=== PATIENT | female | born 1965 | race Caucasian/White ===

== ENCOUNTER 2018-11-13 19:04 | Observation (INO) | payer BC ==
[~2018-11-13] VITALS: Ht 177.8 cm; Wt 109.1 kg
--- NOTE | ~2018-11-13 | HEMODYNAMI ---
PATIENT:BOB CORMIER MEDICAL RECORD: [id number] : 63 LOCATION:[facility] [place] KeylaE11- [facility]# [id number] ADMISSION DATE: 11/13/18 Generatedon:11/14/20189:19 Patient name: BOB CORMIER Patient #: [id number] SSN: : 1965 Date of study: 11/14/2018 Page: Of Hemodynamic Procedure Report Patient Data Patient Demographics Procedure consent was obtained First Name: BOB Gender: Female Last Name: GENIA : 1965 [facility] Initial: L Age: 53 year(s) Patient #: [id number] Race: Unknown Additional ID: [id number] Contact details [address]: [address] [place] [address] State: [place] City: [place] Zip code: [address] Past Medical History Allergies Allergen Reaction Date Comments Reported Aspirin 11/14/2018 Codeine 11/14/2018 Iodine 11/14/2018 Admission Admission Data Admission Date: 11/13/2018 Admission Time: 22:57 Room #: D.E11 Procedure Procedure Types Cath Procedure Diagnostic Procedure LHC LHC w/Coronaries Procedure Description Procedure Date Procedure Date: 11/14/2018 Procedure Start Time: 9:06 Procedure End Time: 9:17 Procedure Staff Name Function Aaron Metzger MD Performing Physician Taurus Lopez RN Nurse Cielo Andino RT Monitor Wei Alcala RT Scrub Procedure Data Cath Procedure Fluoroscopy Diagnostic fluoroscopy Total fluoroscopy Time: 1.5 time: 1.5 min min Diagnostic fluoroscopy Total fluoroscopy dose: 501 dose: 501 mGy mGy Contrast Material Contrast Material Type Amount (ml) Isovue 300 52 Entry Location Entry Primary Successful Side Size Upsize Upsize Entry Closure Cordero ccessful Closure Location (Fr) 1 (Fr) 2 (Fr) Remarks Device Remarks Radial Right 6 Fr Mechanical artery Short Compression Estimated blood loss: 5 ml Diagnostic catheters Device Type Used For End Catheter Placement DIAGNOSTIC [place] 110cm 5 LV Angiography Fr catheter ([id number]) DIAGNOSTIC [place] 110cm 5 Left Coronary Fr catheter ([id number]) Angiography DIAGNOSTIC [place] 110cm 5 Right Coronary Fr catheter ([id number]) Angiography Procedure Complications No complications Procedure Medications Medication Administration Route Dosage 0.9% NaCl I.V. 100 ml/hr Oxygen etCO2 Nasal cannula 2 l/min Heparin Flush Bag added to field 2 bags (1000units/500ml NS) Lidocaine 2% added to field 20 Solumedrol I.V. 125 mg Radial Cocktail added to field 1 syringe (Verapomil 2mg/Nitro 400mcg/Heparin 1500units) Versed I.V. 2 mg Fentanyl I.V. 100 mcg Versed I.V. 2 mg Radial Cocktail I.A. 1 syringe (Verapomil 2mg/Nitro 400mcg/Heparin 1500units) Hemodynamics Rest Heart Rate: 72 (bpm) Pressure Samples Time Site Value (mmHg) Purpose Heart Use Rate(bpm) 9:11 LV 111/6,9 Snapshot 76 Gradients Valve Time Site Site Mean SEP/DFP Peak To Heart Use 1 2 (mmHg) (sec/min) Peak Rate (mmHg) (bpm) Aortic 9:11 LV AO 78 Snapshots Pre Cath Intra NCS Post Cath Vital Signs Time Heart Resp SPO2 etCO2 NIBP (mmHg) Rhythm Pain Sedation Rate (ipm) (%) (mmHg) Status Level (bpm) 9:00:12 78 11 98 37 153/85(119) NSR 0 (11) 10(A) , No pain 9:04:32 69 18 96 41.6 152/83(115) NSR 0 (11) 10(A) , No pain 9:08:48 69 19 95 33.3 138/74(112) NSR 0 (11) 10(A) , No pain 9:13:04 88 19 95 42.3 132/70(96) NSR 0 (11) 10(A) , No pain 9:17:18 72 10 97 45.4 130/77(96) NSR 0 (11) 10(A) , No pain Medications Time Medication Route Dose Verified Delivered Reason Notes Effectiveness by by 8:57:49 0.9% NaCl I.V. 100 Taurus Taurus Per ml/hr John Lopez physician RN RN 8:58:00 Oxygen etCO2 2 l/min Taurus Taurus Per Nasal John Lopez physician cannula RN RN 8:58:12 Heparin Flush added 2 bags Taurus Taurus used for Bag to John Lopez procedure (1000units/500ml field RN RN NS) 8:58:24 Lidocaine 2% added 20ml Taurus Taurus for local to vial John Lopez anesthetic field RN RN 8:58:44 Solumedrol I.V. 125 mg Taurus Taurus Per John Lopez physician RN RN 8:59:01 Radial Cocktail added 1 Taurus Taurus used for (Verapomil to syringe Lorigan Lorigan procedure 2mg/Nitro field RN RN 400mcg/Hepari 9:05:47 Versed I.V. 2 mg Taurus Taurus for sedation John Lopez RN RN 9:05:55 Fentanyl I.V. 100 mcg Taurus Taurus for sedation John Lopez RN RN 9:08:16 Versed I.V. 2 mg Taurus Taurus for sedation John Lopez RN RN 9:09:51 Radial Cocktail I.A. 1 Taurus Aaron for (Verapomil syringe Lorigan Domenica vasodilation 2mg/Nitro KWAKU CRUZ 400mcg/Hepari Procedure Log Time Note 8:17:09 Diagnostic Cath status Elective 8:17:12 Jack Suit RT(R) sent for patient. Start room use. 8:17:14 Time tracking: Regular hours (M-F 7:00 - 5:00) 8:17:18 Plan of Care:Hemodynamics will remain stable., Cardiac rhythm will remain stable., Comfort level will be maintained., Respiratory function will remain adequate., Patient/ family verbilizes understanding of procedure., Procedure tolerated without complication., Recovers from procedure without complications.. 8:45:47 Patient received from ED to CCL 2 Alert and oriented. Tansferred to table in Supine position. 8:45:49 Correct patient and procedure confirmed by team. 8:45:49 Correct patient and procedure confirmed by team. 8:45:49 Warm blankets applied, and liz hugger turned on for patient comfort. 8:45:51 Signed procedure consent form obtained from patient. 8:45:52 ECG and BP/O2 sat monitors applied to patient. 8:45:53 Full Disclosure recording started 8:57:49 0.9% NaCl 100 ml/hr I.V. was administered by Taurus Lopez RN; Per physician; 8:58:00 Oxygen 2 l/min etCO2 Nasal cannula was administered by Taurus Lopez RN; Per physician; 8:58:12 Heparin Flush Bag (1000units/500ml NS) 2 bags added to field was administered by Taurus Lopez RN; used for procedure; 8:58:24 Lidocaine 2% 20ml vial added to field was administered by Taurus Lopez RN; for local anesthetic; 8:58:44 Solumedrol 125 mg I.V. was administered by Taurus Lopez RN; Per physician; 8:58:48 Vital chart was started 8:59:01 Radial Cocktail (Verapomil 2mg/Nitro 400mcg/Heparin 1500units) 1 syringe added to field was administered by Taurus Lopez RN; used for procedure; 9:01:15 Baseline sample Acquired. 9:01:22 Rhythm: sinus rhythm 9:01:34 H&P Date Dictated: 11/13/2018 Within 30 days and on chart., ER History on chart.. 9:01:36 Pre-procedure instructions explained to patient. 9:01:37 Pre-op teaching completed and patient verbalized understanding. 9:01:40 Family in waiting room. 9:01:42 Patient NPO since Midnight. 9:01:48 Patient allergic to Aspirin 9:01:51 Patient allergic to Codeine 9:01:54 Is the patient allergic to Iodine/contrast media? Yes. 9:02:04 Patient allergic to Iodine 9:02:07 Was the patient premedicated? Yes 9:02:09 Is patient on blood thinner?No 9:02:11 Patient diabetic? No. 9:02:14 Previous problem with sedation/anesthesia? No ? 9:02:15 Snore? Yes 9:02:17 Sleep apnea? No 9:02:18 Deviated septum? No 9:02:19 Opens mouth fully? Yes 9:02:20 Sticks out tongue? Yes 9:02:22 Airway obstruction? Yes COPD 9:02:25 Dentures? No ? 9:02:43 Pre procedure: right dorsailis pedis pulse 2+ Normal; easily identifiable; not easily obliterated 9:02:46 Modified Ayo's test Ulnar < 7 seconds 9:02:48 Patient pain scale 0/10 ?. 9:02:54 IV patent on arrival in left antecubital with 0.9% NaCl at KVO. 9:02:56 Lab results completed and on chart. 9:03:00 Right Radial & Right Groin area was prepped with chlora-prep and draped in sterile fashion 9:03:01 Alarms reviewed by R. N. 9:03:02 Sharps counted by scrub and verified by R.N. 9:03:04 Use device set Radial Dx or PCI 9:03:05 ACIST Syringe (59583) opened to sterile field. 9:03:06 Bag Decanter (2002S) opened to sterile field. 9:03:06 Medline Cath Pack ([id number]) opened to sterile field. 9:03:07 ACIST Hand Control (11619) opened to sterile field. 9:03:07 DIAGNOSTIC WIRE .035 260cm J wire (376004) opened to sterile field. 9:03:08 ACIST Manifold (15269) opened to sterile field. 9:03:09 MBrace Wrist Support ([id number]) opened to sterile field. 9:03:10 SHEATH 6FR Slender (38-9151) opened to sterile field. 9:04:28 Final Timeout: patient, procedure, and site verified with staff and physician. All members of the team are in agreement. 9:04:31 Right Radial site verified by team. 9:04:34 Physical assessment completed. ASA score P 2 - A patient with mild systemic disease as per Aaron Metzger MD. 9:04:37 Sedation plan: IV Moderate Sedation Medication:Versed, Fentanyl 9:05:47 Versed 2 mg I.V. was administered by Taurus Lopez RN; for sedation; 9:05:55 Fentanyl 100 mcg I.V. was administered by Taurus Lopez RN; for sedation; 9:06:49 Procedure started. 9:06:53 Local anesthetic to right radial artery with Lidocaine 2% by Aaron Metzger MD.INITIAL ACCESS ONLY 9:07:27 Zero performed for pressure channel P1 9:08:16 Versed 2 mg I.V. was administered by Taurus Lopez RN; for sedation; 9:09:01 Zero performed for pressure channel P1 9:09:18 A 6 Fr Short sheath was inserted into the Right Radial artery 9:09:26 A DIAGNOSTIC [place] 110cm 5 Fr catheter (490782) was advanced over the wire and used for LV Angiography. 9:09:51 Radial Cocktail (Verapomil 2mg/Nitro 400mcg/Heparin 1500units) 1 syringe I.A. was administered by Aaron Metzger MD; for vasodilation; 9:11:20 LV gram done using SHAY 9:11:22 Injector settings: Ml/sec: 5, Volume: 15, 9:11:24 LV hemodynamics recorded. 9:11:30 EF : 50 % 9:12:02 A DIAGNOSTIC [place] 110cm 5 Fr catheter ([id number]) was advanced over the wire and used for Left Coronary Angiography. 9:13:19 A DIAGNOSTIC [place] 110cm 5 Fr catheter (077285) was advanced over the wire and used for Right Coronary Angiography. 9:13:26 Catheter removed. 9:13:47 Sheath removed intact; hemostasis achieved with Mechanical Compression to the Right Radial artery. 9:13:48 Procedure ended.(Physican Out) 9:14:19 Fluoroscopy time 01.50 minutes. 9:14:22 Fluoroscopy dose: 501 mGy 9:14:22 Flurop Dose total: 501 9:14:25 Contrast amount:Isovue 300 52ml. 9:14:26 Sharps counted by scrub and verified by R.N. 9:14:29 TR band inflated with 12cc of air. 9:14:30 Insertion/operative site no bleeding no hematoma. 9:14:51 Post right radial artery:stable, clean and dry 9:14:53 Post Procedure Pulses reassessed and unchanged 9:15:02 Post-procedure physical assessment completed. ASA score P 2 - A patient with mild systemic disease as per Aaron Metzger MD. 9:15:16 Post procedure rhythm: unchanged. 9:15:19 Estimated blood loss: 5 ml 9:15:20 Patient needs reinforcement of post procedure teaching. 9:15:20 Post procedure instruction explained to patient.Patient verbalizes understanding. 9:16:20 Procedure Complication : No complications 9:16:22 See physician's report for complete and final results. 9:16:36 TR BAND Standard ([id number]) opened to sterile field. 9:17:14 Procedure and supply charges have been captured, reviewed, submitted and are correct. 9:17:30 Vital chart was stopped 9:17:32 Report given to Pre/Post Procedure Room. 9:17:37 Patient transfered to Pre/Post Procedure Room with Stretcher. 9:17:39 Full Disclosure recording stopped 9:17:39 Procedure ended. 9:17:43 End room use (Document Last) Device Usage Item Name Manufacture Quantity Catalog Hospital Part Current Minimal Lot# / Number Charge Number Stock Stock Serial# Code ACIST Acist 1 14623 [id number] [id number] 20 Syringe Medical (70755) Systems Inc Medline Medline 1 [id number] 578203 50701 045157 5 Cath Pack ([id number]) Bag Microtek 1 2001S 369573 84658 701805 5 Decanter Medical Inc. (2001S) DIAGNOSTIC [place] 1 510471 065355 311968 072850 30 WIRE .035 260cm J wire (983317) ACIST Hand Acist 1 67827 915851 069286 001845 5 Control Medical (80082) Systems Inc ACIST Acist 1 42295 341158 566479 368808 5 Manifold Medical (79783) Systems Inc MBrace Advanced 1 140-0250-00 458969 34431 330849 5 Wrist Vascular Support Dynamics ([id number]) SHEATH 6FR Terumo 1 [id number] 806273 506130 078999 5 Slender (801060) DIAGNOSTIC Terumo 1 40-0749 509648 914992 859604 5 [place] 110cm 5 Fr catheter (642732) TR BAND Terumo 1 [id number] 499159 642253 884782 40 Standard ([id number]) Signature Audit [place] Stage Time Signature Unsigned Intra-Procedure 11/14/2018 Cielo 9:19:05 AM Counts RT(R) Signatures Monitor : Cielo Signature : Counts RT Date : Time : [place] [id number] [place] [address]
[2018-11-13] MEDS ORDERED: HUMIRA (19:09)
[2018-11-13] MEDS ORDERED: METOPROLOL TART25 MG PO (19:09)
[2018-11-13] MEDS ORDERED: NALFON400 MG PO (19:10)
[2018-11-13] MEDS ORDERED: LEXAPRO10 MG PO (19:10)
[2018-11-13] MEDS ORDERED: ARAVA10 MG PO (19:11)
[2018-11-13] MEDS ORDERED: CALCIUM 500 +1 EAC3 PO (19:11)
[2018-11-13] MEDS ORDERED: OXYCODONE-APAP1 T10 PO (19:12)
[2018-11-13] MEDS ORDERED: ATIVAN1 MG PO (19:12)
[2018-11-13 20:06] LABS: BASOPHILS 0.3 % (0-2); EOSINOPHILS 3.5 % (0-7); HEMATOCRIT 42.7 % (36.0-48.0); HEMOGLOBIN 13.7 g/dL (12-16); IMMATURE GRANULOCYTES 0.3 % (0-5); MCH 32.5 pg (26.0-34.0); MCHC 32.1 g/dL (31.0-37.0); MCV 101.4 fL (80.0-100.0); MEAN PLATELET VOLUME 10.6 fL (7.4-10.4); MONOCYTES 7.3 % (2-11); NEUTROPHILS 53.6 % (40-80); PLATELET COUNT 216 10x3/uL (130-400); RBC 4.21 10x6/uL (4.00-5.40); RDW 13.5 % (11.5-14.5); WBC 7.4 10x3/uL (4.8-10.8)
[2018-11-13 20:16] LABS: APTT 27.5 SECONDS (22.8-39.4); INR 0.93 (0.85-1.17)
[2018-11-13 20:25] LABS: ALBUMIN 3.2 g/dL (3.4-5.0); ALKALINE PHOSPHATASE 57 U/L (46-116); ALT (SGPT) 24 U/L (10-68); BILIRUBIN - TOTAL 0.24 mg/dL (0.2-1.3); CALC OSMOLALITY 282 mosm/kg (275-300); CALCIUM 8.8 mg/dL (8.5-10.1); CHLORIDE - SERUM 106 mmol/L (98-107); CREATININE - SERUM 0.9 mg/dL (0.6-1.3); GLUCOSE 102 mg/dL (74-106); POTASSIUM - SERUM 3.9 mmol/L (3.5-5.1); PROTEIN - SERUM 6.9 g/dL (6.4-8.2); SODIUM 142 mmol/L (136-145); UREA NITROGEN 12 mg/dL (7-18); eGFR NON AFRICAN AMERICAN 69 mL/min (90-120)
[2018-11-13 20:40] LABS: CKMB 1.2 U/L (0.0-3.6); CREATINE KINASE 116 UL (21-215); TROPONIN-I < 0.017 ng/mL (0.000-0.060)
[2018-11-13 23:16] VITALS: BP 113/53
[2018-11-14 03:01] VITALS: BP 107/49
[2018-11-14 03:09] LABS: CKMB 0.9 U/L (0.0-3.6); CREATINE KINASE 90 UL (21-215); TROPONIN-I < 0.017 ng/mL (0.000-0.060)
[2018-11-14 06:32] VITALS: BP 138/117
[2018-11-14 07:21] VITALS: Ht 177.8 cm; Wt 109.1 kg
[2018-11-14 08:37] LABS: BASOPHILS 0.4 % (0-2); EOSINOPHILS 2.6 % (0-7); HEMATOCRIT 39.3 % (36.0-48.0); HEMOGLOBIN 12.8 g/dL (12-16); IMMATURE GRANULOCYTES 0.4 % (0-5); LYMPHOCYTES 27.6 % (15-50); MCH 32.8 pg (26.0-34.0); MCHC 32.6 g/dL (31.0-37.0); MCV 100.8 fL (80.0-100.0); MEAN PLATELET VOLUME 10.5 fL (7.4-10.4); MONOCYTES 8.1 % (2-11); NEUTROPHILS 60.9 % (40-80); PLATELET COUNT 214 10x3/uL (130-400); RDW 13.8 % (11.5-14.5); WBC 7.7 10x3/uL (4.8-10.8)
[2018-11-14 08:43] VITALS: BP 127/61
[2018-11-14 08:48] LABS: CALC OSMOLALITY 283 mosm/kg (275-300); CALCIUM 8.3 mg/dL (8.5-10.1); CARBON DIOXIDE 28.5 mmol/L (21.0-32.0); CHLORIDE - SERUM 106 mmol/L (98-107); CHOL - HDL RATIO 3.4 ratio (2.3-4.1); CHOLESTEROL, TOTAL 156 mg/dL (0-200); CKMB 0.6 U/L (0.0-3.6); CREATINE KINASE 87 UL (21-215); CREATININE - SERUM 0.9 mg/dL (0.6-1.3); GLUCOSE 107 mg/dL (74-106); HDL CHOLESTEROL 46 mg/dL (32-96); LDL CHOLESTEROL 83 mg/dL (0-100); LDL-HDL RATIO 1.8 ratio (1.5-3.5); POTASSIUM - SERUM 3.7 mmol/L (3.5-5.1); SODIUM 142 mmol/L (136-145); TRIGLYCERIDE 137 mg/dL (30-200); UREA NITROGEN 14 mg/dL (7-18); eGFR NON AFRICAN AMERICAN 69 mL/min (90-120)
[2018-11-14 08:49] LABS: TROPONIN-I < 0.017 ng/mL (0.000-0.060)
--- NOTE | 2018-11-14 09:38 | NUR ---
RECIEVED TO ROOM VIA STRETCHER FROM [employer] OPERATOR WITH TR BAND TO R/WRIST CDI NO BLEEDING OR HEMATOMA NOTED. PATIENT CONNECTED TO MONITOR FOR OBSERVATION WITH HR 89 BP 146/83 CHEST PAIN DENIED
--- NOTE | 2018-11-14 09:44 | NUR ---
TR BAND REMAINS CDI WITH VSS PATIENT TOLERATING SANDWICH AND SODA WITH NAUSEA DENIED. VSS AND CHEST PAIN DENIED
--- NOTE | 2018-11-14 10:13 | NUR ---
TR BAND REMAINS CDI WITH NO BLEEDING OR HEMATOMA NOTED. HR 80 BP 158/92 CHEST PAIN IS DENIED. CALL LIGHT IN REACH WITH FAMILY AT BEDSIDE
--- NOTE | 2018-11-14 10:33 | NUR ---
SITTING WITH HOB UP 30 DEGREES CHEST PAIN IS DENIED VSS AND TR BAND TO R/WRIST IS CDI
--- NOTE | 2018-11-14 10:45 | NUR ---
4 CC AIR REMOVED FROM TR BAND WITH NO BLEEDING OR HEMATOMA NOTED.
--- NOTE | 2018-11-14 10:53 | NUR ---
4 CC AIR REMOVED FROM TR BAND WITH NO BLEEDING OR HEMATOMA NOTED. DR MG PRESENT AT BEDSIDE. PATIENT DENIED PAIN OR NEEDS CALLL LIGHT IN REACH
--- NOTE | 2018-11-14 11:14 | NUR ---
4 CC AIR REMOVED FROM TR BAND WITH NO BLEEDING OR HEMATOMA. PIV REMOVED WITH DRESSING APPLIED. PATIENT UP TO GET DRESSED FOR DISCHARGE HOME
--- NOTE | 2018-11-14 11:37 | NUR ---
TR BAND REMOVED WITH DRESSING APPLIED. VERBAL AND WRITTEN DISCHARGE GONE OVER WITH PATIENT AND FAMILY. CHEST PAIN IS DENIED. PATIENT TRANSPORTED VIA TO PARKING FOR RIDE HOME NO DISTRESS
--- NOTE | 2018-11-19 15:26 | OP ---
PATIENT NAME: BOB CORMIER MEDICAL RECORD: [id number] :63 [facility]ATION[facility] ADMISSION DATE:11/13/18 SURGEON: EMILIANO MG MD DATE OF OPERATION: 11/14/2018 PROCEDURE: Left heart catheterization, selective coronary angiography, right radial approach. CATHETERS: [place] catheter. Radial sheath. The procedure was well tolerated. The patient was returned to villatoro. Sheath removed. TR band was placed. FINDINGS: Left ventriculography in 30-degree SHAY view: Normal wall motion and normal systolic function. CORONARY ANATOMY: LEFT MAIN: Left main is free of disease. LAD: Free of disease in diagonal system. CIRCUMFLEX: Free of disease in the marginal system. RIGHT CORONARY ARTERY: Dominant artery. IMPRESSION: Normal LV systolic function. Normal coronary anatomy. TRANSINT:[id number] Voice Confirmation ID: [id number] DOCUMENT ID: [id number] EMILIANO MG MD at 1526 CC: [id number] DICTATION DATE: 11/14/18940 TECHNOLOGY ENGINEER: 11/14/18 1236 DIS IN 11/14/18 [facility] [address] [place] [address]
== END 2018-11-14 11:40 | disposition home or self-care (01) ==
LOC: D.ER 19:04 → D.CLR 22:57 → D.EDHOLD 22:57 → OBSVTIME 22:57 → D.EDHOLD 22:57 → D.CLR 11-14 09:25
PROVIDERS: Family Medicine; Internal Medicine Cardiovascular Disease; ADMIT Internal Medicine Nephrology
DX: R07.9 Chest pain, unspecified (principal); M06.9 Rheumatoid arthritis, unspecified; R00.2 Palpitations; F17.213 Nicotine dependence, cigarettes, with withdrawal; I10 Essential (primary) hypertension; E78.5 Hyperlipidemia, unspecified; R55 Syncope and collapse; R61 Generalized hyperhidrosis; K21.9 Gastro-esophageal reflux disease without esophagitis; J44.9 Chronic obstructive pulmonary disease, unspecified

== ENCOUNTER → 2018-11-23 08:00 | Outpatient (CLI) | payer BC ==
[2018-11-14 07:21] VITALS: BMI 34.5
[~2018-11-23 08:00] MED LIST: ARAVA10 MG PO; ATIVAN1 MG PO; CALCIUM 500 +1 EAC3 PO; HUMIRA; LEXAPRO10 MG PO; METOPROLOL TART25 MG PO; NALFON400 MG PO; OXYCODONE-APAP1 T10 PO
== END | disposition home or self-care (01) ==
LOC: D.MAMMO 08:00
DX: Z12.31 Encounter for screening mammogram for malignant neoplasm of breast (principal)

== ENCOUNTER → 2021-02-02 12:20 | Outpatient (CLI) | payer BC ==
[2018-11-14 07:21] VITALS: BMI 34.5
== END | disposition home or self-care (01) ==
LOC: D.HCCECHO 12:20
PROVIDERS: ATTEND Internal Medicine Cardiovascular Disease
DX: R00.2 Palpitations (principal)

== ENCOUNTER 2021-04-09 11:45 | Outpatient (CLI) | payer BC ==
[2018-11-14 07:21] VITALS: BMI 34.5
== END 2021-04-09 23:59 | disposition home or self-care (01) ==
LOC: D.MAMMO 11:45
PROVIDERS: ATTEND Family Medicine
DX: Z12.31 Encounter for screening mammogram for malignant neoplasm of breast (principal)

== ENCOUNTER 2021-04-22 14:35 | Outpatient (CLI) | payer BC ==
[2018-11-14 07:21] VITALS: BMI 34.5
== END 2021-04-22 23:59 | disposition home or self-care (01) ==
LOC: D.MAMMO 14:35
PROVIDERS: ATTEND Family Medicine
DX: R92.8 Other abnormal and inconclusive findings on diagnostic imaging of breast (principal)